=== PATIENT | female | born 1990 | race Caucasian/White ===

== ENCOUNTER 2016-10-10 03:52 | Emergency (ER) | payer OTHER ==
[~2016-10-10 03:52] MED LIST: LORA10TA7 PO; OMEP20 PO
== END 2016-10-10 04:30 | disposition left against medical advice (07) ==
LOC: EMS 03:53
DX: F41.9 Anxiety disorder, unspecified (principal); Z53.21 Procedure and treatment not carried out due to patient leaving prior to being seen by health care provider